=== PATIENT | female | born 1975 | race Caucasian/White ===

== ENCOUNTER → 2020-08-27 | Outpatient (CLI) | payer OTHER ==
[~2020-08-27] MED LIST: DOCUSATE SODIU100 MG PO; HYDROCODON-ACE1 EAC4 PO; LEVOTHYROXINE100 MCG PO; NAPROXEN250 MG PO
== END ==
LOC: KOH-I 15:24
DX: R06.02 Shortness of breath (principal)
CPT/HCPCS: 71046

== ENCOUNTER → 2020-09-11 | Outpatient (CLI) | payer OTHER | LOC: HEART 5 13:30 | DX: R00.2 Palpitations (principal) ==

== ENCOUNTER → 2020-10-14 | Day surgery (SDC) | payer OTHER | END | disposition home or self-care (01) | LOC: OR 06:29 | PROVIDERS: Obstetrics & Gynecology | PROC: 10D17ZZ Extraction of Products of Conception, Retained, Via Natural or Artificial Opening (ICD-10-PCS; principal; 2020-10-14 08:00) | DX: O02.1 Missed abortion (principal); E03.9 Hypothyroidism, unspecified; E53.8 Deficiency of other specified B group vitamins; E78.5 Hyperlipidemia, unspecified; I10 Essential (primary) hypertension; R00.2 Palpitations; Z79.899 Other long term (current) drug therapy; Z20.822 Contact with and (suspected) exposure to COVID-19 | CPT/HCPCS: 87635; J1100; J1885; J2001; J2250; J2405; J2704; J2765; J2795; J3010; J7120 ==

== ENCOUNTER → 2021-06-23 | Day surgery (SDC) | payer OTHER ==
[~2021-06-23] VITALS: Ht 167.6 cm; Wt 61.7 kg
[~2021-06-23] MED LIST changes: +B-125000 MCG/1 SL; +BIOTIN 800 MCG1 EACH PO; +PROBIOTIC1 EAC1 PO; +VITAMIN E100 UNI2 PO
== END | disposition home or self-care (01) ==
LOC: OR 06:18
DX: Z12.11 Encounter for screening for malignant neoplasm of colon (principal); Z86.010 Personal history of colon polyps; Z79.899 Other long term (current) drug therapy
CPT/HCPCS: 84703; J2704; J7030